=== PATIENT | female | born 1985 | race Caucasian/White ===

== ENCOUNTER → 2017-08-27 | Outpatient (CLI) | payer BC ==
--- NOTE | 2017-08-27 13:45 | US ---
EXAMINATION TYPE: US transvaginal DATE OF EXAM: 08/27/2017 COMPARISON: NONE CLINICAL HISTORY: N91.5 Oligomenorrhea; patient stated had last menses December 2016; G0; not taking any medication TECHNIQUE: Transvaginal (TV) per order. Date of LMP: December 2016 EXAM MEASUREMENTS: Uterus: 6.4 x 2.9 x 2.6 cm Endometrial Stripe: 0.3 cm Right Ovary: 4.4 x 2.8 x 2.5 cm Left Ovary: 3.2 x 2.9 x 2.3 cm 1. Uterus: Anteverted; small Nabothian Cyst in cervix =0.5 x 0.4 x 0.3cm 2. Endometrium: appears wnl and unable to correlate thickness with LMP December 2016 3. Right Ovary: multiple small follicles noted in periphery 4. Left Ovary: multiple small follicles area also noted Spectral, color and waveform doppler imaging shows good arterial and venous flow within the ovaries ; . 5. Bilateral Adnexa: wnl 6. Posterior cul-de-sac: wnl Anteverted heterogeneous uterus with small nabothian cysts in the cervix. No suspicious thickening of endometrial stripe. No free fluid in pelvis. Both ovaries are identified with scattered small peripheral follicles. No suspicious extraovarian adn exal masses are seen. IMPRESSION: No suspicious finding is seen to account for patient's symptoms.
== END ==
LOC: RADUSWWP 12:50
PROVIDERS: ATTEND Internal Medicine
DX: N91.5 Oligomenorrhea, unspecified (principal)
CPT/HCPCS: 76830

== ENCOUNTER 2019-04-17 18:11 | Emergency (ER) | payer BC ==
[2019-04-17 18:25] VITALS: RESP 16
[2019-04-17] MEDS ORDERED: SODIUM CHLORIDE 0.9% 1,000 ML IV ONE (18:44)
--- NOTE | 2019-04-17 18:47 | ED ---
General Adult HPI - General Chief complaint: Abdominal Pain Stated complaint: 6wks preg, bleeding Time Seen by Provider: 04/17/19 18:23 Source: patient Mode of arrival: ambulatory Limitations: no limitations - History of Present Illness Initial comments: 34-year-old female patient presents to the emergency department today for evaluation of vaginal bleeding. Patient states that she found out about a week ago that she was . Patient states that she started having light spotting this morning and it has become gradually heavier throughout the day. Patient states she does not wear panty liner but she has not soaked through. States she did have one small blood clot this morning but has passed no further clots. Patient states she is having some mild suprapubic cramping. She denies any abnormal vaginal bleeding or discharge. States that she did treat a yeast infection with [id number] Monistat couple of weeks ago, states all sympt oms have resolved. She denies any hematuria, dysuria, urinary frequency, urinary urgency. Denies any fever or chills. Patient has history of PCOS but denies any other medical problems. This is her first . Patient denies any recent rash, fever, chills, shortness breath, chest pain, nausea, vomiting, diarrhea, constipation, back pain, numbness, tingling, dizziness, weakness, hematuria, dysuria, urinary urgency, urinary frequency, headache, visual changes, or any other complaints. - Related Data Allergies Allergy/AdvReac Type Severity Reaction Status Date / Time No Known Allergies Allergy Verified 04/17/19 18:25 Review of Systems ROS Statement: Those systems with pertinent positive or pertinent negative responses have been documented in the HPI. ROS Other: All systems not noted in ROS Statement are negative. Past Medical History Past Medical History: Cancer Additional Past Medical History / Comment(s): breast cancer, polycystic ovarian disease History of Any Multi-Drug Resistant Organisms: None Reported Additional Past Surgical History / Comment(s): double masectomy, gastric sleeve Past Psychological History: No Psychological Hx Reported Smoking Status: Never smoker Past Alcohol Use History: None Reported Past Drug Use History: None Reported General Exam Limitations: no limitations General appearance: alert, in no apparent distress, other (Physical well- developed, well-nourished adult female patient in no acute distress. Vital signs upon presentation are temperature 98.2F, pulse 99, respirations 16, blood pressure 139/100, pulse ox 100% on room air.) Eye exam: Present: normal appearance, PERRL, EOMI. Absent: scleral icterus, conjunctival injection, periorbital swelling ENT exam: Present: normal exam, normal oropharynx, mucous membranes moist Respiratory exam: Present: normal lung sounds bilaterally. Absent: respiratory distress, wheezes, rales, rhonchi, stridor Cardiovascular Exam: Present: regular rate, normal rhythm, normal heart sounds. Absent: systolic murmur, diastolic murmur, rubs, gallop, clicks GI/Abdominal exam: Present: soft, normal bowel sounds. Absent: distended, tenderness, guarding, rebound, rigid External exam: Present: normal external exam Speculum exam: Present: vaginal bleeding (Mild red vaginal bleeding. ), other (Cervix is closed). Absent: normal speculum exam Neurological exam: Present: alert, oriented X3, CN II-XII intact Psychiatric exam: Present: normal affect, normal mood Skin exam: Present: warm, dry, intact, normal color. Absent: rash Course Vital Signs 04/17/19 04/17/19 18:22 20:55 Temperature 98.2 F 98.0 F Pulse Rate 99 72 Respiratory 16 16 Rate Blood Pressure 139/100 117/79 O2 Sat by Pulse 100 99 Oximetry Medical Decision Making - Medical Decision Making 34-year-old female patient presents to the emergency department today for evalua tion of suprapubic cramping, vaginal bleeding. Patient did have a positive test and would be approximately 5-1/2 weeks for her last menstrual period. Physical examination reveals soft nontender abdomen. Pelvic exam was performed and did reveal mild vaginal bleeding, cervix is closed. Ultrasound was obtained and did show possible gestational sac with yolk sac within the endometrium. There is a large left ovarian cyst noted, thin wall. No evidence of ovarian torsion. HCG level is 23,800. I did discuss the case with on-call DIRECTOR GOVERNMENT Dr. Negron who believes this could be early vs spontaneous , but thinks ectopic is unlikely given level of HCG. patient is resting comfortably in bed at this time. We will discharge to return in 2 days to have repeat hCG level drawn. She is instructed to call DIRECTOR GOVERNMENT on Saturday to determine when her appointment date will be and requested sooner appointment. Return parameters were discussed in detail. She verbalizes understanding and agrees with this plan. - Lab Data Result diagrams: 04/17/19 18:51 04/17/19 18:51 Lab Results 04/17/19 04/17/19 04/17/19 Range/Units 18:45 18:51 18:51 WBC 8.9 (3.8-10.6) k/uL RBC 4.66 (3.80-5.40) m/uL Hgb 13.0 (11.4-16.0) gm/dL Hct 39.7 (34.0-46.0) % MCV 85.3 (80.0-100.0) fL MCH 27.9 (25.0-35.0) pg MCHC 32.8 (31.0-37.0) g/dL RDW 11.9 (11.5-15.5) % Plt Count 222 (150-450) k/uL Neutrophils % 64 % Lymphocytes % 28 % Monocytes % 5 % Eosinophils % 1 % Basophils % 0 % Neutrophils # 5.7 (1.3-7.7) k/uL Lymphocytes # 2.5 (1.0-4.8) k/uL Monocytes # 0.4 (0-1.0) k/uL Eosinophils # 0.1 (0-0.7) k/uL Basophils # 0.0 (0-0.2) k/uL Sodium (137-145) mmol/L Potassium (3.5-5.1) mmol/L Chloride (98-107) mmol/L Carbon Dioxide (22-30) mmol/L Anion Gap mmol/L BUN (7-17) mg/dL Creatinine (0.52-1.04) mg/dL Est GFR (CKD-EPI)AfAm (>60 ml/min/1.73 sqM) Est GFR (CKD-EPI)NonAf (>60 ml/min/1.73 sqM) Glucose (74-99) mg/dL Calcium (8.4-10.2) mg/dL Total Bilirubin (0.2-1.3) mg/dL AST (14-36) U/L ALT (4-34) U/L Alkaline Phosphatase (38-126) U/L Total Protein (6.3-8.2) g/dL Albumin (3.5-5.0) g/dL HCG, Quant mIU/mL Urine Color Yellow Urine Appearance Cloudy H (Clear) Urine pH 5.5 (5.0-8.0) Ur Specific [place] 1.026 (1.001-1.035) Urine Protein 1+ H (Negative) Urine Glucose (UA) Negative (Negative) Urine Ketones Negative (Negative) Urine Blood Large H (Negative) Urine Nitrite Negative (Negative) Urine Bilirubin Negative (Negative) Urine Urobilinogen <2.0 (<2.0) mg/dL Ur Leukocyte Esterase Negative (Negative) Urine RBC 12 H (0-5) /hpf Urine WBC 5 (0-5) /hpf Ur Squamous Epith Cells 1 (0-4) /hpf Urine Bacteria Rare H (None) /hpf Urine Mucus Occasional H (None) /hpf Blood Type O Positive Blood Type Recheck No Previous Record Bld Type Recheck Status [facility] ONLY 04/17/19 Range/Units 18:51 WBC (3.8-10.6) k/uL RBC (3.80-5.40) m/uL Hgb (11.4-16.0) gm/dL Hct (34.0-46.0) % MCV (80.0-100.0) fL MCH (25.0-35.0) pg MCHC (31.0-37.0) g/dL RDW (11.5-15.5) % Plt Count (150-450) k/uL Neutrophils % % Lymphocytes % % Monocytes % % Eosinophils % % Basophils % % Neutrophils # (1.3-7.7) k/uL Lymphocytes # (1.0-4.8) k/uL Monocytes # (0-1.0) k/uL Eosinophils # (0-0.7) k/uL Basophils # (0-0.2) k/uL Sodium 136 L (137-145) mmol/L Potassium 4.0 (3.5-5.1) mmol/L Chloride 101 (98-107) mmol/L Carbon Dioxide 20 L (22-30) mmol/L Anion Gap 15 mmol/L BUN 22 H (7-17) mg/dL Creatinine 0.89 (0.52-1.04) mg/dL Est GFR (CKD-EPI)AfAm >90 (>60 ml/min/1.73 sqM) Est GFR (CKD-EPI)NonAf 86 (>60 ml/min/1.73 sqM) Glucose 89 (74-99) mg/dL Calcium 9.6 (8.4-10.2) mg/dL Total Bilirubin 0.4 (0.2-1.3) mg/dL AST 23 (14-36) U/L ALT 7 (4-34) U/L Alkaline Phosphatase 55 (38-126) U/L Total Protein 8.3 H (6.3-8.2) g/dL Albumin 5.0 (3.5-5.0) g/dL HCG, Quant 79350.7 mIU/mL Urine Color Urine Appearance (Clear) Urine pH (5.0-8.0) Ur Specific [place] (1.001-1.035) Urine Protein (Negative) Urine Glucose (UA) (Negative) Urine Ketones (Negative) Urine Blood (Negative) Urine Nitrite (Negative) Urine Bilirubin (Negative) Urine Urobilinogen (<2.0) mg/dL Ur Leukocyte Esterase (Negative) Urine RBC (0-5) /hpf Urine WBC (0-5) /hpf Ur Squamous Epith Cells (0-4) /hpf Urine Bacteria (None) /hpf Urine Mucus (None) /hpf Blood Type Blood Type Recheck Bld Type Recheck Status - Radiology Data Radiology results: report reviewed Obstetrical ultrasound is obtained. Report was reviewed in its entirety. Impression by Dr. Rowland shows findings favor too early to visualize intrauterine however spontaneous abortions in the differential and ectopic is not entirely excluded. Serum beta hCG and ultrasound follow-up is advised. Reading through the report there showed central endometrium possible gastritis gestational sac measuring 2.0 x 0.9 x 1.9 cm there is a round peripheral hyperechoic 2 mm area which could be the yolk sac. There is also 5.8 simple-appearing thin walled cyst on the left ovary. Disposition Clinical Impression: Threatened miscarriage, Left ovarian cyst, Vaginal bleeding during Disposition: HOME SELF-CARE Condition: Good Instructions (If sedation given, give patient instructions): Threatened Miscarriage (ED), (ED), Ovarian Cyst (ED) Additional Instructions: Rest. Increase fluids. Maintain pelvic rest until follow-up with DIRECTOR GOVERNMENT. Call [facility] DIRECTOR GOVERNMENT on Saturday to see about your appointment. Have repeat labs performed in 2 days. Return to the emergency department immediately for any new, worsening, or concerning symptoms. Is patient prescribed a controlled substance at d/c from ED?: No Referrals: Breezy Johnson MD [Primary Care Provider] - 1-2 days Shala Allred MD [STAFF PHYSICIAN] - 1-2 days Time of Disposition: 20:54
[2019-04-17 19:06] LABS: Basophils % (A) 0 %; Eosinophils # (A) 0.1 k/uL (0-0.7); Eosinophils % (A) 1 %; HCT 39.7 % (34.0-46.0); Lymphocytes # (A) 2.5 k/uL (1.0-4.8); Lymphocytes % (A) 28 %; MCH 27.9 pg (25.0-35.0); MCHC 32.8 g/dL (31.0-37.0); MCV 85.3 fL (80.0-100.0); Mean Platelet Volume 7.6; Monocytes # (A) 0.4 k/uL (0-1.0); Monocytes % (A) 5 %; Neutrophils # (A) 5.7 k/uL (1.3-7.7); Neutrophils % (A) 64 %; Platelet Count 222 k/uL (150-450); RBC 4.66 m/uL (3.80-5.40); RDW 11.9 % (11.5-15.5); WBC 8.9 k/uL (3.8-10.6)
[2019-04-17 19:07] LABS: Appearance,Urine Cloudy (Clear); Bacteria,Urine Rare /hpf; Bilirubin,Urine Negative (Negative); Blood,Urine Large (Negative); Color,Urine Yellow; Glucose,Urine (UA) Negative (Negative); Ketones,Urine Negative (Negative); Leukocyte Esterase,Urine Negative (Negative); Mucus,Urine Occasional /hpf; Nitrite,Urine Negative (Negative); PH, Urine 5.5 (5.0-8.0); Protein,Urine 1+ (Negative); RBC,Urine 12 /hpf (0-5); Specific Gravity,Urine 1.026 (1.001-1.035); Squamous Epithelial Cell,Urine 1 /hpf (0-4); Urobilinogen,Urine <2.0 mg/dL (<2.0); WBC,Urine 5 /hpf (0-5)
[2019-04-17 19:14] LABS: ALT 7 U/L (4-34); AST 23 U/L (14-36); African American GFR (CKD) >90 (>60 ml/min/1.73 sqM); Alkaline Phosphatase 55 U/L (38-126); Anion Gap 15 mmol/L; Blood Urea Nitrogen 22 mg/dL (7-17); Calcium 9.6 mg/dL (8.4-10.2); Carbon Dioxide 20 mmol/L (22-30); Chloride 101 mmol/L (98-107); Glucose 89 mg/dL (74-99); Non-African American GFR(CKD) 86 (>60 ml/min/1.73 sqM); Sodium 136 mmol/L (137-145); Total Bilirubin 0.4 mg/dL (0.2-1.3); Total Protein 8.3 g/dL (6.3-8.2)
[2019-04-17 19:58] LABS: HCG,Quantitative Serum 24884.7 mIU/mL
--- NOTE | 2019-04-17 20:03 | US ---
EXAMINATION TYPE: Transabdominal DATE OF EXAM: 04/17/2019 7:13 PM COMPARISON: NONE CLINICAL HISTORY: Bleeding, 5.5 weeks . Pt states vaginal bleeding that started today, moderate in fl ow EXAM PERFORMED: Transabdominal (TA) EXAM MEASUREMENTS: GESTATIONAL AGE / DATING Physician Established: Not yet established Dates by LMP: (6 weeks/0 days) EDC: 12/11/2019 Dates by First Scan: No prior Dates by Current Scan for: (5 weeks/6 days) EDC: 12/12/2019 MATERNAL ANATOMY Uterus: 6.9 x 4.4 x 5.2 cm Right Ovary: 3.3 x 2.0 x 2.7 cm Left Ovary: 7.2 x 6.1 x 6.4 cm Post CDS / Adnexa: wnl Presence of free fluid: No Presence of corpus luteal cyst: Large left ovarian cyst= 5.8 x 5.2 x 5.3 cm, blood flow is visualized at peripheral ovarian tissue Presence of subchorionic bleed: No GESTATION / SURVEY CRL: Not visualized on today's scan, too early MSD: 1.6 cm (5 weeks/6 days) Yolk Sac (normal less than 6mm): 2mm Date of LMP: 03/06/2019 Beta HcG (if available): Not available at this time Heterogeneous anteverted uterus. Central endometrium shows oval anechoic area measuring 2.0 x 0.9 x 1 .9 cm. Within this there is round peripheral hyperechoic 2 mm area. Findings likely reflect early ges tational sac and yolk sac. pole not clearly identified. No free fluid in pelvis. Both ovaries seen. Left ovary enlarged due to 5.8 cm simple appearing thin-walled cyst. If reflects a corpus luteal cyst it is large in size. No suspicious extra ovarian adnexal masses present. IMPRESSION: As above. Findings favor too early to visualize intrauterine however spontaneou s is in the differential and ectopic is not entirely excluded. Serial beta hCG and ultrasound follow-up advised.
[2019-04-17 20:56] VITALS: BP 117/79; PULSE 72; TEMP 98
== END 2019-04-17 21:14 | disposition home or self-care (01) ==
LOC: EC 18:11
DX: O20.0 Threatened abortion (principal); O34.81 Maternal care for other abnormalities of pelvic organs, first trimester; N83.202 Unspecified ovarian cyst, left side; Z85.3 Personal history of malignant neoplasm of breast; Z87.42 Personal history of other diseases of the female genital tract; Z90.13 Acquired absence of bilateral breasts and nipples; Z98.84 Bariatric surgery status; Z3A.01 Less than 8 weeks gestation of pregnancy
CPT/HCPCS: 36415; 76801; 80053; 81001; 84702; 85025; 86900; 86901; 96360; 99284

== ENCOUNTER → 2019-04-20 | Outpatient (CLI) | payer BC | END | disposition home or self-care (01) | LOC: LABWHC1 09:32 | PROVIDERS: ATTEND Nurse Practitioner | DX: O20.0 Threatened abortion (principal) | CPT/HCPCS: 36415; 84702 ==

== ENCOUNTER → 2019-04-21 | Outpatient (CLI) | payer BC ==
--- NOTE | 2019-04-21 09:38 | US ---
EXAMINATION TYPE: Transabdominal DATE OF EXAM: 04/21/2019 9:27 AM COMPARISON: NONE CLINICAL HISTORY: O46.91 BLEEDING/SPOTTING. spotting, seen in our EC 4 days prior, cramping, early OB , G1 EXAM PERFORMED: OBTA/OBTV EXAM MEASUREMENTS: GESTATIONAL AGE / DATING Physician Established: Not yet established Dates by LMP: (6 weeks/4 days) EDC: 12/11/2019 Dates by First Scan: (6 weeks/3 days) EDC: 12/12/2019 Dates by Current Scan for: (6 weeks/3 days) EDC: 12/12/2019 MATERNAL ANATOMY Uterus: 7.8 x 5.2 x 5.2cm Right Ovary: 3.0 x 2.8 x 1.9cm Left Ovary: 4.4 x 6.2 x 4.8cm, large simple appearing cyst = 6.3cm Post CDS / Adnexa: wnl Presence of free fluid: no Presence of corpus luteal cyst: not seen with certainty Presence of subchorionic bleed: no GESTATION / SURVEY CRL: 0.6 (6 weeks/3 days) MSD: wnl Yolk Sac (normal less than 6mm): 0.3cm Heart Rate: 127 bpm Rhythm: Normal IUP: Viable IUP Date of LMP: 03/06/2019 Beta HcG (if available): not available *tech impression to office and sending patient back There is a large cyst on the left ovary IMPRESSION: 1. Single intrauterine gestation estimated at 6 weeks 3 days gestation based on crown-rump length. Ca rdiac activity measures 127 bpm. 2. Large left ovarian cyst
== END | disposition home or self-care (01) ==
LOC: RADUSWWP 08:58
PROVIDERS: ATTEND Obstetrics & Gynecology Obstetrics
DX: O34.81 Maternal care for other abnormalities of pelvic organs, first trimester (principal); N83.202 Unspecified ovarian cyst, left side; Z3A.01 Less than 8 weeks gestation of pregnancy
CPT/HCPCS: 76801; 76817

== ENCOUNTER 2019-12-05 09:45 | Inpatient (IN) | payer BC ==
[2019-12-05] MEDS ORDERED: TERBUTALINE 1 MG/ML VIAL SQ PRN (10:36)
[2019-12-05] MEDS ORDERED: CARBOPROST TROMETHAMINE 250 MCG/ML 1 ML AMP IM PRN (10:36)
[2019-12-05] MEDS ORDERED: OXYTOCIN 10 UNIT/ML 1 ML VIAL IM PRN (10:36)
[2019-12-05] MEDS ORDERED: LIDOCAINE 0.5% (PF) 5 MG/ML (50 ML SDV) SQ PRN (10:36)
[2019-12-05] MEDS ORDERED: METHYLERGONOVINE 0.2 MG/ML 1 ML AMP IM PRN (10:36)
[2019-12-05] MEDS ORDERED: LACTATED RINGERS 1,000 ML IV SCH (10:45)
[2019-12-05 10:50] LABS: Basophils % (A) 0 %; Eosinophils # (A) 0.1 k/uL (0-0.7); Eosinophils % (A) 1 %; HCT 38.9 % (34.0-46.0); HGB 12.6 gm/dL (11.4-16.0); Lymphocytes # (A) 2.3 k/uL (1.0-4.8); Lymphocytes % (A) 16 %; MCH 30.2 pg (25.0-35.0); MCHC 32.3 g/dL (31.0-37.0); MCV 93.5 fL (80.0-100.0); Mean Platelet Volume 7.8; Monocytes # (A) 0.7 k/uL (0-1.0); Monocytes % (A) 5 %; Neutrophils # (A) 11.5 k/uL (1.3-7.7); Neutrophils % (A) 78 %; Platelet Count 214 k/uL (150-450); RBC 4.16 m/uL (3.80-5.40); RDW 13.4 % (11.5-15.5); WBC 14.7 k/uL (3.8-10.6)
--- NOTE | 2019-12-05 11:47 | P.HPOB ---
History of Present Illness H&P Date: 12/05/19 Chief Complaint: Rupture of membranes This is a 34 year old 1 para 0 woman with an estimated due date of 12/11/2019 who presented at 39 weeks gestation. 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 She woke up and hurting a pop and a gush of fluids. This is at approximately 730 AM. She had no real regular contractions initially but then started having some cramping and decided to come to the hospital. She denies vaginal bleeding at that time. On presentation to labor and delivery triage at approximately 945. She was found to be grossly ruptured with meconium stained fluid and was 7-8 cm dilated. During her brief evaluation in triage heart tones were reassuring. The patient complains of only mild cramping and some pelvic pressure. She was transported to a labor suite and was re-hooked up to the heart rate monitor. At that point she was found to be bradycardic in the 70-80 bpm. This initially did improve from baseline but after another couple of minutes she had a prolonged bradycardic event. The patient was at that time found to be completely dilated and +2 station. Coinciding with this transfer from triage to a labor room I initiated a stat section for other events on the unit. I was aware of the patient's triage exam and heart rate tracing which was reassuring. I initiated a section and several minutes into the procedure was notified of the bradycardia occurring in this patient's labor room. Dr. Vaz arrived on the unit as she had been previously called to assist with the section and was directed immediately to attendants to this situation instead. Please see her delivery summary notes for events surrounding delivery. In summary the patient was completely dilated and +2 station with bradycardia. She was an effective pusher and Dr. Vaz was able to perform a vacuum assisted vaginal delivery over a midline episiotomy. Apgars were 7 at 1 minute and 8 at 5 minutes. The was taken to the nursery for further evaluation secondary to events of delivery and thick meconium-stained fluid. Weight was 6 lbs. 8 oz. and 2940 g. Placenta was sent to 4 pathology evaluation. The patient's record is not available at this time however the patient reports an uncomplicated . She had an ovarian cyst in the first trimester that did resolve later in the . She had an ultrasound 2 weeks prior to delivery for suspected SGA which was normal per her report. Her past medical history is significant for gastric sleeve bariatric procedure 2 years ago with 110 pound weight loss. She also has a remote history of bilateral mastectomy for breast malignancy at age 22. This is her first . Review of Systems All systems: negative Past Medical History Past Medical History: Cancer Additional Past Medical History / Comment(s): breast cancer, polycystic ovarian disease History of Any Multi-Drug Resistant Organisms: None Reported Additional Past Surgical History / Comment(s): double masectomy, gastric sleeve Past Anesthesia/Blood Transfusion Reactions: No Reported Reaction Past Psychological History: No Psychological Hx Reported Smoking Status: Former smoker Past Alcohol Use History: None Reported Past Drug Use History: None Reported - Past Family History Mother History Unknown: Yes Additional Family Medical History / Comment(s): skin cancer Medications and Allergies Home Medications Medication Instructions Recorded Confirmed Type Pedi Multivit No.25/Folic Acid 300 mcg PO DAILY 12/05/19 12/05/19 History [Flintstones Multivit Chew Tab] Allergies Allergy/AdvReac Type Severity Reaction Status Date / Time No Known Allergies Allergy Verified 04/17/19 18:25 Exam Vital Signs Temp Pulse Resp BP 12/05/19 11:24 52 L 14 134/74 12/05/19 11:17 52 L 16 163/84 12/05/19 11:02 42 L 16 150/70 12/05/19 10:47 48 L 16 159/75 12/05/19 10:32 97.8 F 52 L 16 140/78 12/05/19 10:31 97.2 F L 51 L 24 173/83 Intake and Output 12/04/19 12/05/19 12/05/19 22:59 06:59 14:59 Other: Weight 79.832 kg Admit the patient post delivery and she has resting comfortably in bed, no further physical exam is performed at this moment Results Result Diagrams: 12/05/19 10:00 Abnormal Lab Results - Last 24 Hours (Table) 12/05/19 Range/Units 10:00 WBC 14.7 H (3.8-10.6) k/uL Neutrophils # 11.5 H (1.3-7.7) k/uL Assessment and Plan (1) Spontaneous rupture of membranes Current Visit: Yes Status: Acute Code(s): [id number] - SNOMED Code(s): 282909765 (2) Term Current Visit: Yes Status: Acute Code(s): Z34.90 - ENCNTR FOR SUPRVSN OF NORMAL , UNSP, UNSP TRIMESTER SNOMED Code(s): 23896196 (3) Meconium in amniotic fluid Current Visit: Yes Status: Acute Code(s): P96.83 - MECONIUM STAINING SNOMED Code(s): 5134859 (4) Non-reassuring heart rate or rhythm affecting management of fetus Current Visit: Yes Status: Acute Code(s): [id number] - SNOMED Code(s): 954730835 Plan: 34-year-old 1 now para 1 woman who presented at 39-0/7 weeks gestation in advanced active labor with meconium-stained fluid following rupture of membranes at home. She had a significant bradycardic event in the second stage and was delivered by vacuum assistance. Events of labor and delivery were reviewed in detail with the family and patient. All questions were answered. I defer to Dr. Vaz's delivery summary for details and appreciate her timely and competent assistance in this sequence of events.
[2019-12-05] MEDS ORDERED: SIMETHICONE 80 MG CHEWABLE PO PRN (12:15)
[2019-12-05] MEDS ORDERED: BENZOCAINE/MENTHOL SPRAY 1 GM/SPRAY AEROSOL TOPICAL PRN (12:15)
[2019-12-05] MEDS ORDERED: OXYTOCIN 20 UNITS/1000 ML NS 1,000 ML IV SCH (12:15)
[2019-12-05] MEDS ORDERED: HYDROCORTISONE 2.5% RECTAL CREAM 30 GM TUBE RECTAL PRN (12:15)
[2019-12-05] MEDS ORDERED: diphenhydrAMINE 25 MG CAP PO PRN (12:15)
[2019-12-05] MEDS ORDERED: diphenhydrAMINE 50 MG CAP PO PRN (12:15)
[2019-12-05] MEDS ORDERED: ACETAMINOPHEN TAB 325 MG TAB PO PRN (12:15)
[2019-12-05] MEDS ORDERED: diphenhydrAMINE 50 MG/ML 1 ML VIAL IVP PRN ×2 (12:15)
[2019-12-05] MEDS ORDERED: ZOLPIDEM 5 MG TAB PO PRN (12:15)
[2019-12-05] MEDS: SENNOSIDES-DOCUSATE SODIUM 1 EACH TAB PO SCH (20:44)
[2019-12-06] MEDS: IBUPROFEN 600 MG TAB PO PRN ×2 (06:15→21:17)
[2019-12-06 07:00] LABS: Basophils % (A) 0 %; Eosinophils # (A) 0.1 k/uL (0-0.7); Eosinophils % (A) 1 %; HCT 32.5 % (34.0-46.0); HGB 10.7 gm/dL (11.4-16.0); Lymphocytes # (A) 2.6 k/uL (1.0-4.8); Lymphocytes % (A) 22 %; MCH 30.5 pg (25.0-35.0); MCHC 33.1 g/dL (31.0-37.0); MCV 92.3 fL (80.0-100.0); Mean Platelet Volume 7.7; Monocytes # (A) 0.5 k/uL (0-1.0); Monocytes % (A) 4 %; Neutrophils # (A) 8.3 k/uL (1.3-7.7); Neutrophils % (A) 72 %; Platelet Count 179 k/uL (150-450); RBC 3.52 m/uL (3.80-5.40); RDW 13.2 % (11.5-15.5); WBC 11.6 k/uL (3.8-10.6)
[2019-12-06] MEDS: SENNOSIDES-DOCUSATE SODIUM 1 EACH TAB PO SCH ×2 (08:55→21:19)
--- NOTE | 2019-12-06 09:34 | P.PROBDLV ---
Vaginal Delivery Note - . Vaginal Delivery Note: Patient entered the Labor and delivery unit and was directed to the L&D suite where Irene Puga had been admitted. I Was actually called in for a stat section but redirect to this room upon presentation to the unit. Report from the nurse was that this 34-year-old at 39 weeks presented to triage complaining of spontaneous rupture membranes at 7:30 AM, with thick meconium. The heart tones originally been category 1 but when she got to the L&D suite and was hooked up to the monitor again, heart tones were went to the 70s to 80s. Cervix had been checked and was told to me to be 9 cm dilated, 100 percent effaced, and +1 station. When I entered the room she was in knee- chest position with heart tones were in the 70s for the last 3 minutes. heart tones did go back up to 100 when she was in knee-chest but went back down to the 80s soon after. Oxygen mask was on her face and IV fluids running. I introduced myself to the patient and repositioned her in the lithotomy position. The cervix was completely dilated and +2 station at 10:20 AM. I had the patient start to push and after a few pushes with instruction she was pushing effectively. head position was confirmed and episiotomy was made. I briefly discussed vacuum delivery including risks with the father of the baby and the patient. The vacuum was placed with 2 pulls and one pop-off infant's head delivered atraumatically anterior shoulder delivered gentle downward guidance for by posterior shoulder and rest of body. Nose and mouth bulb suctioned as the baby spontaneously cried. Cord was then clamped and cut and infant handed off to the waiting nurses and mosquito sprayer who was in the room. Apgars were 7 at 1 minute and 8 at 5 minutes. Weight of the baby 6 lbs. 8 oz. Placenta delivered spontaneously, intact with three-vessel cord at 10:20 AM. V agina, cervix, perineum inspected. Midline episiotomy was repaired with 3-0 Vicryl. Estimated blood loss 400 mL. Mother is in stable condition and the infant is being evaluated by pediatrics.
--- NOTE | 2019-12-06 11:33 | P.DS ---
Providers Date of admission: 12/05/19 10:00 Expected date of discharge: 12/06/19 Attending physician: Raquel Ross Primary care physician: Stated None - Discharge Diagnosis(es) (1) Spontaneous rupture of membranes Current Visit: Yes Status: Acute (2) Term Current Visit: Yes Status: Acute (3) Meconium in amniotic fluid Current Visit: Yes Status: Acute (4) Non-reassuring heart rate or rhythm affecting management of fetus Current Visit: Yes Status: Acute (5) Vacuum-assisted vaginal delivery Current Visit: Yes Status: Acute (6) Perineal laceration with delivery, second degree Current Visit: Yes Status: Acute Hospital Course: This is a 34-year-old 1 now para 1 woman who presented at term with spontaneous rupture of membranes at home. She experienced some mild cramping and discomfort and had spontaneous rupture at approximately 7:30 AM. The patient presented to labor and delivery triage at approximately 9:30 to 9:45 AM. At that time she was found to be 7-8 cm dilated and grossly ruptured with meconium-stained fluid. She was transferred from triage to the delivery suite at which time she was found to have a significant bradycardia to the 70-80 bpm. Of note heart tones were category 1 upon initial presentation in labor and delivery triage. She was found to be at complete cervical dilation and was an effective pusher. She went on to have a vacuum-assisted vaginal delivery of a liveborn male infant over a secondary perineal laceration. Please see the delivery summary for complete details. The patient's course was unremarkable. The transiently went to the special care nursery but was released back to the room after several hours. By the morning of day #1 patient was feeling well with decreasing lochia and adequate pain control. The was being bottle-fed and doing well. Vital signs were stable. Her perineum was well healing. After discussion the patient indicated strongly that she would like discharge home. The patient was therefore discharged home with routine instructions for care and follow-up pending evaluation and discharge from the loss prevention analyst. Patient Condition at Discharge: Good Plan - Discharge Summary Discharge Rx Participant: No New Discharge Prescriptions: No Action Pedi Multivit No.25/Folic Acid [Flintstones Multivit Chew Tab] 300 mcg PO DAILY Discharge Medication List Pedi Multivit No.25/Folic Acid [Flintstones Multivit Chew Tab] 300 mcg PO DAILY 12/05/19 [History] Follow up Appointment(s)/Referral(s): Raquel Ross DO [Doctor of Osteopathic Medicine] - 4 Weeks Activity/Diet/Wound Care/Special Instructions: Follow-up in the office in 6 weeks . Call with any concerning signs or symptoms including heavy vaginal bleeding, severe abdominal pain, fever greater than 101, swelling or redness of the lower extremities, foul vaginal discharge, or signs of depression. Nothing in the vagina for 6 weeks after delivery, specifically no intercourse. May use [id number] ibuprofen and/or Tylenol as needed for pain. Discharge Disposition: HOME SELF-CARE
[2019-12-07] VITALS: RESP 18
[2019-12-07] MEDS: IBUPROFEN 600 MG TAB PO PRN (06:40)
[2019-12-07 08:47] VITALS: BP 136/73; PULSE 63; TEMP 98.6
[2019-12-07] MEDS: SENNOSIDES-DOCUSATE SODIUM 1 EACH TAB PO SCH (08:56)
--- NOTE | 2019-12-07 09:06 | P.PNOBGVD ---
Subjective - Subjective Principal diagnosis: PPD 1 Interval history: Patient is doing well . She is postop day #2 from a vacuum- assisted vaginal delivery secondary to nonreassuring heart tones, thick meconium. Patient is ambulating and voiding without difficulty. She is tolerating a regular diet without nausea or vomiting. She states her pain is well-controlled. She is anxious for discharge home. Patient reports: Reports appetite normal, Reports voiding normally, Reports pain well controlled, Reports ambulating normally Patterson: doing well, bottle feeding Objective - Latest Vital Signs Latest vital signs: Vital Signs Temp Pulse Resp BP Pulse Ox 12/07/19 08:00 98.6 F 63 18 136/73 99 12/06/19 23:56 98.0 F 60 18 117/70 98 12/06/19 16:00 98.1 F 67 17 118/70 - Exam Extremities: Present: normal, edema Abdomen: Present: normal appearance Uterus: Present: normal, firm Assessment and Plan (1) Meconium in amniotic fluid Current Visit: Yes Status: Acute Code(s): P96.83 - MECONIUM STAINING SNOMED Code(s): 5847616 (2) Non-reassuring heart rate or rhythm affecting management of fetus Current Visit: Yes Status: Acute Code(s): YWG3840 - SNOMED Code(s): 24 3176863 (3) Perineal laceration with delivery, second degree Current Visit: Yes Status: Acute Code(s): O70.1 - SECOND DEGREE PERINEAL LACERATION DURING DELIVERY SNOMED Code(s): 1566500 (4) Spontaneous rupture of membranes Current Visit: Yes Status: Acute Code(s): EPU0884 - SNOMED Code(s): 451381692 (5) Term Current Visit: Yes Status: Acute Code(s): Z34.90 - ENCNTR FOR SUPRVSN OF NORMAL , UNSP, UNSP TRIMESTER SNOMED Code(s): 20557100 (6) Vacuum-assisted vaginal delivery Current Visit: Yes Status: Acute Code(s): Z37.9 - OUTCOME OF DELIVERY, UNSPECIFIED SNOMED Code(s): 10116687593176943 Plan: We'll plan discharge home this morning, [id number] ibuprofen as needed for pain. Patient is instructed to follow up with myself in 4 weeks.
== END 2019-12-07 11:00 | disposition home or self-care (01) | DRG 807 ==
LOC: FBPOP 09:45 → 4FBP 10:00
PROVIDERS: ADMIT Obstetrics & Gynecology; ATTEND Obstetrics & Gynecology Obstetrics
PROC: 0W8NXZZ Division of Female Perineum, External Approach (ICD-10-PCS; principal; 2019-12-05)
PROC: 10D07Z6 Extraction of Products of Conception, Vacuum, Via Natural or Artificial Opening (ICD-10-PCS; principal; 2019-12-05)
PROC: 0KQM0ZZ Repair Perineum Muscle, Open Approach (ICD-10-PCS; principal; 2019-12-05)
DX: O76 Abnormality in fetal heart rate and rhythm complicating labor and delivery (principal); Z37.0 Single live birth; O77.0 Labor and delivery complicated by meconium in amniotic fluid; O70.1 Second degree perineal laceration during delivery; Z3A.39 39 weeks gestation of pregnancy; Z79.899 Other long term (current) drug therapy; Z90.13 Acquired absence of bilateral breasts and nipples; Z85.3 Personal history of malignant neoplasm of breast; Z98.84 Bariatric surgery status; Z87.42 Personal history of other diseases of the female genital tract; Z87.891 Personal history of nicotine dependence; Z80.8 Family history of malignant neoplasm of other organs or systems
CPT/HCPCS: 84112; 85025; 86850; 86900; 86901; 88307; 99213

== ENCOUNTER → 2020-07-01 | Outpatient (CLI) | payer BC ==
--- NOTE | 2020-07-01 12:07 | USB ---
Reason for exam: clinical finding. History: Implants, 2007. Mastectomy of both breasts, 2007. Physical Findings: Nurse Summary: 0.5cm palpable movable (nurse dw). US Breast LT Left complete breast ultrasound includes all four quadrants, the retroareolar region and axilla. Finding demonstrates a 0.6 x 0.3 x 0.8cm oval, hypoechoic lesion at 4 o'clock for which a biopsy is recommended. These results were verbally communicated with the patient and result sheet given to the patient on 07/01/20. ASSESSMENT: Suspicious, BI-RAD 4 RECOMMENDATION: Ultrasound core biopsy of the left breast. Called Dr. Ross's office with mammographic findings and has scheduled an appointment for the patient for 07/06/20 at 10:[address] Scott. PRELIMINARY REPORT CALLED AND FAXED TO DR. SCOTT ON 07/01/20.
== END | disposition home or self-care (01) ==
LOC: RADUSWWP 09:09
PROVIDERS: ATTEND Obstetrics & Gynecology Obstetrics
DX: R92.2 Inconclusive mammogram (principal)

== ENCOUNTER 2022-08-28 18:00 | Inpatient (IN) | payer BC ==
[2022-08-28] MEDS ORDERED: CARBOPROST TROMETHAMINE 250 MCG/ML 1 ML AMP IM PRN (18:22)
[2022-08-28] MEDS ORDERED: METHYLERGONOVINE 0.2 MG/ML 1 ML AMP IM PRN (18:22)
[2022-08-28] MEDS ORDERED: miSOPROStoL 200 MCG TAB PO PRN (18:22)
[2022-08-28] MEDS ORDERED: LIDOCAINE 0.5% (PF) 5 MG/ML (50 ML SDV) SQ PRN (18:22)
[2022-08-28] MEDS ORDERED: TRANEXAMIC 1,000 MG/100ML-NACL 1,000 MG in EMPTY BAG 1 BAG IV PRN (18:22)
[2022-08-28] MEDS ORDERED: TERBUTALINE 1 MG/ML VIAL SQ PRN (18:22)
[2022-08-28] MEDS ORDERED: OXYTOCIN 10 UNIT/ML 1 ML VIAL IM PRN (18:22)
[2022-08-28] MEDS: LACTATED RINGERS 1,000 ML IV SCH (18:29)
[2022-08-28] MEDS ORDERED: OXYTOCIN 30 UNITS/500 ML NS 30 UNIT in SALINE 1 500ML.BAG IV SCH (18:30)
[2022-08-28 18:40] LABS: Basophils % (A) 0 %; Eosinophils # (A) 0.1 k/uL (0-0.7); Eosinophils % (A) 1 %; HCT 30.6 % (34.0-46.0); HGB 9.4 gm/dL (11.4-16.0); Hypochromasia Marked; Lymphocytes # (A) 2.1 k/uL (1.0-4.8); Lymphocytes % (A) 22 %; MCHC 30.8 g/dL (31.0-37.0); MCV 74.6 fL (80.0-100.0); Mean Platelet Volume 9.4; Microcytosis Slight; Monocytes # (A) 0.5 k/uL (0-1.0); Monocytes % (A) 5 %; Neutrophils # (A) 6.6 k/uL (1.3-7.7); Neutrophils % (A) 70 %; Platelet Count 222 k/uL (150-450); Poikilocytosis Slight; RDW 15.6 % (11.5-15.5); WBC 9.4 k/uL (3.8-10.6)
[2022-08-28] MEDS ORDERED: diphenhydrAMINE 50 MG CAP PO PRN (20:49)
[2022-08-28] MEDS ORDERED: LANOLIN CREAM 5 GM TUBE TOPICAL PRN (20:49)
[2022-08-28] MEDS ORDERED: diphenhydrAMINE 50 MG/ML 1 ML VIAL IVP PRN ×2 (20:49)
[2022-08-28] MEDS ORDERED: HYDROCORTISONE 2.5% RECTAL CREAM 30 GM TUBE RECTAL PRN (20:49)
[2022-08-28] MEDS ORDERED: ZOLPIDEM 5 MG TAB PO PRN (20:49)
[2022-08-28] MEDS ORDERED: diphenhydrAMINE 25 MG CAP PO PRN (20:49)
[2022-08-28] MEDS ORDERED: SIMETHICONE 80 MG CHEWABLE PO PRN (20:49)
[2022-08-28] MEDS ORDERED: BENZOCAINE/MENTHOL SPRAY 1 GM/SPRAY AEROSOL TOPICAL PRN (20:49)
[2022-08-28] MEDS: IBUPROFEN 600 MG TAB PO PRN (20:59)
[2022-08-28] MEDS: ACETAMINOPHEN TAB 325 MG TAB PO PRN (23:12)
--- NOTE | 2022-08-29 02:16 | P.HPOB ---
History of Present Illness H&P Date: 08/29/22 Chief Complaint: Labor,SROM 37 year old presented at 39 weeks 4 days in labor and with spontaneous rupture of membranes at 1745. Her cervix was 5-6 cm dilated, her percent effaced, and -1 station. She was quincy every 3-7 minutes. heart tones 135 with moderate variability and reactive. Review of Systems All systems: negative Constitutional: Denies chills, Denies fever Eyes: denies blurred vision, denies pain Ears, nose, mouth and throat: Denies headache, Denies sore throat Cardiovascular: Denies chest pain, Denies shortness of breath Respiratory: Denies cough Gastrointestinal: Denies abdominal pain, Denies diarrhea, Denies nausea, Denies vomiting Genitourinary: Denies dysuria, Denies hematuria Musculoskeletal: Denies myalgias Integumentary: Denies pruritus, Denies rash Neurological: Denies numbness, Denies weakness Psychiatric: Denies anxiety, Denies depression Endocrine: Denies fatigue, Denies weight change Past Medical History Past Medical History: Cancer Additional Past Medical History / Comment(s): 2008 breast cancer, double mastec jak, polycystic ovarian disease History of Any Multi-Drug Resistant Organisms: None Reported Additional Past Surgical History / Comment(s): double masectomy, gastric sleeve Past Anesthesia/Blood Transfusion Reactions: No Reported Reaction Past Psychological History: No Psychological Hx Reported Smoking Status: Former smoker Past Alcohol Use History: None Reported Past Drug Use History: None Reported - Past Family History Mother History Unknown: Yes Additional Family Medical History / Comment(s): skin cancer Father Additional Family Medical History / Comment(s): polycystic kidney disease Medications and Allergies Home Medications Medication Instructions Recorded Confirmed Type Pedi Multivit No.25/Folic Acid 300 mcg PO DAILY 12/05/19 08/28/22 History [Flintstones Multivit Chew Tab] Allergies Allergy/AdvReac Type Severity Reaction Status Date / Time No Known Allergies Allergy Verified 08/28/22 18:21 Exam Osteopathic Statement: *. No significant issues noted on an osteopathic structural exam other than those noted in the History and Physical/Consult. Vital Signs Temp Pulse Resp BP Pulse Ox 08/28/22 23:24 98.9 F 68 16 132/74 100 08/28/22 21:42 55 L 16 130/67 08/28/22 21:12 49 L 16 148/72 08/28/22 20:42 43 L 16 154/72 08/28/22 20:27 55 L 16 146/67 08/28/22 20:07 59 L 16 157/80 100 08/28/22 19:51 51 L 16 158/71 100 08/28/22 19:42 97.5 F L 70 16 130/67 100 08/28/22 18:30 97.7 F 63 16 143/73 100 Intake and Output 08/28/22 08/28/22 08/29/22 14:59 22:59 06:59 Output Total 502 Balance -502 Output: Estimated Blood Loss 300 Output, Quantitative 202 Blood Loss Other: # Voids 1 1 Weight 82.1 kg Heart: Regular rate and rhythm Lungs: Clear to auscultation bilaterally Abdomen: Soft, nontender Extremities: Negative Homans sign Results Result Diagrams: 08/28/22 18:23 Abnormal Lab Results - Last 24 Hours (Table) 08/28/22 Range/Units 18:23 Hgb 9.4 L (11.4-16.0) gm/dL Hct 30.6 L (34.0-46.0) % MCV 74.6 L (80.0-100.0) fL MCH 23.0 L (25.0-35.0) pg MCHC 30.8 L (31.0-37.0) g/dL RDW 15.6 H (11.5-15.5) % Assessment and Plan (1) Spontaneous rupture of membranes Current Visit: No Status: Acute Code(s): JAX7475 - SNOMED Code(s): 775051849 (2) Term Current Visit: No Status: Acute Code(s): Z34.90 - ENCNTR FOR SUPRVSN OF NORMAL , UNSP, UNSP TRIMESTER SNOMED Code(s): 93945789 (3) Normal labor Current Visit: Yes Status: Acute Code(s): O80 - ENCOUNTER FOR FULL-TERM UNCOMPLICATED DELIVERY; Z37.9 - OUTCOME OF DELIVERY, UNSPECIFIED SNOMED Code(s): 63463981 Plan: 1. Admit to family place 2. Expectant management 3. Anticipate normal vaginal delivery
--- NOTE | 2022-08-29 02:17 | P.PROBDLV ---
Vaginal Delivery Note - . Vaginal Delivery Note: 37 year old presented at 39 weeks 4 days in labor and with spontaneous rupture of membranes at 1745. Her cervix was 5-6 cm dilated, her percent effaced, and -1 station. She was quincy every 3-7 minutes. heart tones 135 with moderate variability and reactive. She dilated quite quickly to complete at 1909. She pushed, delivered a viable male over intact perineum at 1916. Head delivered OA, nuchal cord 1 easily reduced, anterior shoulder delivered gentle downward guidance followed by posterior shoulder and rest of body. Nose and mouth bulb suctioned, cord clamped and cut, infant placed mother's abdomen. Apgars 8, 9, weight 6 lbs. 14 oz. Placenta delivered spontaneously, intact with three-vessel cord at 1920. Vagina, cervix, perineum inspected. Bilateral labial lacerations were repaired with 3-0 Vicryl. Estimated blood loss 300 mL. Mother and baby in stable condition.
[2022-08-29] MEDS: IBUPROFEN 600 MG TAB PO PRN ×3 (04:07→20:47)
[2022-08-29 07:22] LABS: Basophils % (A) 0 %; Eosinophils % (A) 0 %; HCT 23.8 % (34.0-46.0); Hypochromasia Marked; Lymphocytes % (A) 16 %; MCH 22.3 pg (25.0-35.0); MCV 74.2 fL (80.0-100.0); Mean Platelet Volume 9.6; Microcytosis Slight; Monocytes # (A) 0.5 k/uL (0-1.0); Monocytes % (A) 4 %; Neutrophils # (A) 9.4 k/uL (1.3-7.7); Neutrophils % (A) 78 %; Platelet Count 183 k/uL (150-450); Poikilocytosis Slight; RDW 15.7 % (11.5-15.5); WBC 12.2 k/uL (3.8-10.6)
[2022-08-29 07:23] LABS: HGB 7.1 gm/dL (11.4-16.0)
[2022-08-29] MEDS ORDERED: SENNOSIDES-DOCUSATE SODIUM 1 EACH TAB PO SCH (08:00)
[2022-08-29] MEDS: ACETAMINOPHEN TAB 325 MG TAB PO PRN ×2 (08:51→16:38)
[2022-08-29 11:10] VITALS: RESP 18
[2022-08-29] MEDS: LACTATED RINGERS 1,000 ML IV SCH ×2 (11:21→11:22)
[2022-08-29 22:29] VITALS: BP 124/78; PULSE 76; TEMP 98
--- NOTE | 2022-08-30 10:32 | P.DS ---
Providers Date of admission: 08/28/22 18:12 Expected date of discharge: 08/29/22 Attending physician: Elen Vaz Primary care physician: Stated None - Discharge Diagnosis(es) (1) Spontaneous rupture of membranes Status: Resolved (2) Term Status: Acute (3) Normal labor Status: Resolved (4) Normal vaginal delivery Status: Acute Hospital Course: 37-year-old resented in active labor. She underwent a normal vaginal delivery. course was uneventful. She denies nausea, vomiting, chest pain, shortness of breath or calf pain. She'll be discharged home day #1 in stable condition to follow-up with me in 6 weeks. Patient Condition at Discharge: Good Plan - Discharge Summary New Discharge Prescriptions: New Ibuprofen [Motrin] 600 mg PO Q6HR PRN #30 tab PRN Reason: Mild Pain (Scale 1 To 3) No Action Pedi Multivit No.25/Folic Acid [Flintstones Multivit Chew Tab] 300 mcg PO DAILY Discharge Medication List Pedi Multivit No.25/Folic Acid [Flintstones Multivit Chew Tab] 300 mcg PO DAILY 12/05/19 [History] Ibuprofen [Motrin] 600 mg PO Q6HR PRN #30 tab 08/29/22 [Rx] Follow up Appointment(s)/Referral(s): Elen Vaz DO [Doctor of Osteopathic Medicine] - 10/09/22 10:45 am Discharge Disposition: HOME SELF-CARE
== END 2022-08-29 19:10 | disposition home or self-care (01) | DRG 807 ==
LOC: FBPOP 18:00 → 4FBP 18:12
PROVIDERS: ADMIT Obstetrics & Gynecology; ATTEND Obstetrics & Gynecology
PROC: 10E0XZZ Delivery of Products of Conception, External Approach (ICD-10-PCS; principal; 2022-08-29)
PROC: 0HQ9XZZ Repair Perineum Skin, External Approach (ICD-10-PCS; 2022-08-29)
DX: O42.92 Full-term premature rupture of membranes, unspecified as to length of time between rupture and onset of labor (principal); Z37.0 Single live birth; O70.0 First degree perineal laceration during delivery; O69.81X0 Labor and delivery complicated by cord around neck, without compression, not applicable or unspecified; Z3A.39 39 weeks gestation of pregnancy; Z85.3 Personal history of malignant neoplasm of breast; Z87.891 Personal history of nicotine dependence; Z90.13 Acquired absence of bilateral breasts and nipples; Z98.84 Bariatric surgery status
CPT/HCPCS: 85025; 86850; 86900; 86901

== ENCOUNTER 2023-03-17 08:46 | Emergency (ER) | payer BC ==
[2023-03-17] MEDS ORDERED: SODIUM CHLORIDE 0.9% 1,000 ML IV STA (09:01)
[2023-03-17] MEDS ORDERED: METOCLOPRAMIDE 5 MG/ML 2 ML VIAL IVP STA (09:01)
[2023-03-17] MEDS ORDERED: KETOROLAC 15 MG/ML 1 ML VIAL IVP STA (09:01)
[2023-03-17] MEDS ORDERED: FAMOTIDINE 20 MG/2 ML VIAL IV STA (09:02)
--- NOTE | 2023-03-17 09:04 | ED ---
General Adult HPI - General Chief complaint: Abdominal Pain Stated complaint: abd pain Time Seen by Provider: 03/17/23 08:56 Source: patient, RN notes reviewed Mode of arrival: ambulatory Limitations: no limitations - History of Present Illness Initial comments: Patient is a pleasant 38-year-old female present to the emergency department with abdominal discomfort. Onset of symptoms was around 3:00 yesterday. Patient has had some nausea without vomiting. Patient has felt a little bit constipated. Discomfort started diffuse however now is more right upper abdomen. Discomfort does increase a little bit with deep breaths. No history of similar symptoms previously. Patient does have history of gastric surgery however still has her gallbladder. Patient has had no appetite since onset of symptoms. Patient has not eaten much. No fever. - Related Data Home Medications Medication Instructions Recorded Confirmed Pedi Multivit No.25/Folic Acid 300 mcg PO DAILY 12/05/19 08/28/22 [Flintstones Multivit Chew Tab] Previous Rx's Medication Instructions Recorded Ibuprofen [Motrin] 600 mg PO Q6HR PRN #30 tab 08/29/22 Allergies Allergy/AdvReac Type Severity Reaction Status Date / Time No Known Allergies Allergy Verified 03/17/23 08:52 Review of Systems ROS Statement: Those systems with pertinent positive or pertinent negative responses have been documented in the HPI. ROS Other: All systems not noted in ROS Statement are negative. Constitutional: Denies: fever Eyes: Denies: eye pain ENT: Denies: ear pain Respiratory: Denies: cough, dyspnea Cardiovascular: Denies: chest pain Endocrine: Denies: fatigue Gastrointestinal: Reports: as per HPI, abdominal pain, nausea, constipation. Denies: vomiting, diarrhea Genitourinary: Denies: dysuria Musculoskeletal: Denies: back pain Skin: Denies: rash Neurological: Denies: weakness Past Medical History Past Medical History: Cancer Additional Past Medical History / Comment(s): 2008 breast cancer, double mastectomy, polycystic ovarian disease History of Any Multi-Drug Resistant Organisms: None Reported Additional Past Surgical History / Comment(s): double masectomy, gastric sleeve Past Anesthesia/Blood Transfusion Reactions: No Reported Reaction Past Psychological History: No Psychological Hx Reported Smoking Status: Former smoker Past Alcohol Use History: None Reported Past Drug Use History: None Reported - Past Family History Mother History Unknown: Yes Additional Family Medical History / Comment(s): skin cancer Father Additional Family Medical History / Comment(s): polycystic kidney disease General Exam Limitations: no limitations General appearance: alert, in no apparent distress Head exam: Present: normocephalic Neck exam: Present: normal inspection Respiratory exam: Present: normal lung sounds bilaterally Cardiovascular Exam: Present: regular rate, normal rhythm Expanded Peripheral pulses: 2+: Dorsalis Pedis (R), Dorsalis Pedis (L) GI/Abdominal exam: Present: soft, tenderness (Moderate tenderness right upper abdomen), normal bowel sounds. Absent: distended, rebound, rigid, pulsatile mass Extremities exam: Present: normal inspection Neurological exam: Present: alert Psychiatric exam: Present: normal affect, normal mood Skin exam: Present: normal color Course Vital Signs 03/17/23 03/17/23 08:48 10:12 Temperature 98.0 F Pulse Rate 78 79 Respiratory 18 18 Rate Blood Pressure 132/88 116/72 O2 Sat by Pulse 98 95 Oximetry Medical Decision Making - Medical Decision Making Was pt. sent in by a medical professional or institution (, PA, CURING BIN OPERATOR, urgent care, hospital, or assisted...) When possible be specific @ -No Did you speak to anyone other than the patient for history (EMS, parent, family, police, friend...)? What history was obtained from this source @ -Family is present and helps provide history including history of gastric surgery Did you review nursing and triage notes (agree or disagree)? Why? @ -I reviewed and agree with nursing and triage notes Were old charts reviewed (outside hosp., previous admission, EMS record, old EKG, old radiological studies, urgent care reports/EKG's, assisted records)? Report findings @ -No old charts were reviewed Differential Diagnosis (chest pain, altered mental status, abdominal pain women, abdominal pain men, vaginal bleeding, weakness, fever, dyspnea, syncope, headache, dizziness, GI bleed, back pain, seizure, CVA, palpatations, mental health, musculoskeletal)? @ -Differential Abdominal Pain Women: Appendicitis, Cholecystitis, diverticulosis, ischemic bowel, pancreatitis, hepatitis, UTI, gastroenteritis, AAA, incarcerated hernia, bowel obstruction, constipation, inflammatory bowel, hepatitis, peptic ulcer disease, splenic infarction, perforated viscus, vulvitis, ovarian torsion, PID, kidney stone, placenta abruption, this is not meant to be an all-inclusive list e EKG interpreted by me (3pts min.). @ -As above X-rays interpreted by me (1pt min.). @ -Abdominal x-ray shows nonspecific abdomen e CT interpreted by me (1pt min.). @ -Air-fluid level ascending colon. Some ascites. U/S interpreted by me (1pt. min.). @ -No obvious gallstones e What testing was considered but not performed or refused? (CT, X-rays, U/S, labs)? Why? @ -None What meds were considered but not given or refused? Why? @ -None Did you discuss the management of the patient with other professionals (professionals i.e. Dr., PA, CURING BIN OPERATOR, lab, RT, psych nurse, social security specialist, javascript application developer, teacher, community arts officer, case consultant)? Give summary @ -Case discussed with on-call surgeon Dr. Zhao who did review images and is comfortable with discharge with patient. He does recommend primary care physician and gastroenterology follow-up Was smoking cessation discussed for >3mins.? @ -No Was critical care preformed (if so, how long)? @ -No Were there social determinants of health that impacted care today? How? (Homelessness, low income, unemployed, alcoholism, drug addiction, transportation, low edu. Level, literacy, decrease access to med. care, senior living, rehab)? @ -No Was there de-escalation of care discussed even if they declined (Discuss DNR or withdrawal of care, Hospice)? DNR status @ -No What co-morbidities impacted this encounter? (DM, HTN, Smoking, COPD, CAD, Cancer, CVA, ARF, Chemo, Hep., AIDS, mental health diagnosis, sleep apnea, morbid obesity)? @ -None Was patient admitted / discharged? Hospital course, mention meds given and route, prescriptions, significant lab abnormalities, going to OR and other pertinent info. @ -Patient reevaluated. Patient and family updated on results and need for follow-up. Patient states she feels much better, discomfort improved to 3/10 and is comfortable with discharge home. Patient will be provided gastroenterology follow-up number. e Undiagnosed new problem with uncertain prognosis? @ -No Drug Therapy requiring intensive monitoring for toxicity (Heparin, Nitro, Insulin, Cardizem)? @ -No Were any procedures done? @ -No Diagnosis/symptom? @ -Abdominal pain t Acute, or Chronic, or Acute on Chronic? @ -Acute Uncomplicated (without systemic symptoms) or Complicated (systemic symptoms)? @ -Default Side effects of treatment? @ -No Exacerbation, Progression, or Severe Exacerbation? @ -No Poses a threat to life or bodily function? How? (Chest pain, [place], [place], pneumonia, PE, COPD, DKA, ARF, appy, cholecystitis, CVA, Diverticulitis, Homicidal, Suicidal, threat to staff... and all critical care pts) @ -No - Lab Data Result diagrams: 03/17/23 09:08 03/17/23 09:08 Lab Results 03/17/23 03/17/23 03/17/23 Range/Units 09:08 09:08 09:08 WBC 10.1 (3.8-10.6) k/uL RBC 4.79 (3.80-5.40) m/uL Hgb 10.7 L (11.4-16.0) gm/dL Hct 35.7 (34.0-46.0) % MCV 74.5 L (80.0-100.0) fL MCH 22.3 L (25.0-35.0) pg MCHC 29.9 L (31.0-37.0) g/dL RDW 27.1 H (11.5-15.5) % Plt Count 242 (150-450) k/uL MPV 7.6 Neutrophils % 75 % Lymphocytes % 17 % Monocytes % 5 % Eosinophils % 1 % Basophils % 0 % Neutrophils # 7.6 (1.3-7.7) k/uL Lymphocytes # 1.8 (1.0-4.8) k/uL Monocytes # 0.5 (0-1.0) k/uL Eosinophils # 0.1 (0-0.7) k/uL Basophils # 0.0 (0-0.2) k/uL Manual Slide Review Performed Dimorphic RBCs Present Hypochromasia Marked Poikilocytosis Slight Anisocytosis Marked Microcytosis Marked PT 10.5 (10.0-12.5) sec INR 0.9 (<1.2) APTT 23.9 (22.0-30.0) sec Sodium (137-145) mmol/L Potassium (3.5-5.1) mmol/L Chloride (98-107) mmol/L Carbon Dioxide (22-30) mmol/L Anion Gap mmol/L BUN (7-17) mg/dL Creatinine (0.52-1.04) mg/dL Est GFR (CKD-EPI)AfAm (>60 ml/min/1.73 sqM) Est GFR (CKD-EPI)NonAf (>60 ml/min/1.73 sqM) Glucose (74-99) mg/dL Calcium (8.4-10.2) mg/dL Total Bilirubin (0.2-1.3) mg/dL AST (14-36) U/L ALT (4-34) U/L Alkaline Phosphatase (38-126) U/L Total Protein (6.3-8.2) g/dL Albumin (3.5-5.0) g/dL Amylase (30-110) U/L Lipase (23-300) U/L HCG, Quant mIU/mL Urine Color Yellow Urine Appearance Cloudy H (Clear) Urine pH 5.5 (5.0-8.0) Ur Specific [place] 1.027 (1.001-1.035) Urine Protein Trace H (Negative) Urine Glucose (UA) Negative (Negative) Urine Ketones Negative (Negative) Urine Blood Large H (Negative) Urine Nitrite Negative (Negative) Urine Bilirubin Negative (Negative) Urine Urobilinogen <2.0 (<2.0) mg/dL Ur Leukocyte Esterase Negative (Negative) Urine RBC 9 H (0-5) /hpf Urine WBC 3 (0-5) /hpf Ur Squamous Epith Cells 6 H (0-4) /hpf Urine Mucus Many H (None) /hpf 03/17/23 Range/Units 09:08 WBC (3.8-10.6) k/uL RBC (3.80-5.40) m/uL Hgb (11.4-16.0) gm/dL Hct (34.0-46.0) % MCV (80.0-100.0) fL MCH (25.0-35.0) pg MCHC (31.0-37.0) g/dL RDW (11.5-15.5) % Plt Count (150-450) k/uL MPV Neutrophils % % Lymphocytes % % Monocytes % % Eosinophils % % Basophils % % Neutrophils # (1.3-7.7) k/uL Lymphocytes # (1.0-4.8) k/uL Monocytes # (0-1.0) k/uL Eosinophils # (0-0.7) k/uL Basophils # (0-0.2) k/uL Manual Slide Review Dimorphic RBCs Hypochromasia Poikilocytosis Anisocytosis Microcytosis PT (10.0-12.5) sec INR (<1.2) APTT (22.0-30.0) sec Sodium 141 (137-145) mmol/L Potassium 3.9 (3.5-5.1) mmol/L Chloride 112 H (98-107) mmol/L Carbon Dioxide 20 L (22-30) mmol/L Anion Gap 9 mmol/L BUN 16 (7-17) mg/dL Creatinine 0.82 (0.52-1.04) mg/dL Est GFR (CKD-EPI)AfAm >90 (>60 ml/min/1.73 sqM) Est GFR (CKD-EPI)NonAf >90 (>60 ml/min/1.73 sqM) Glucose 108 H (74-99) mg/dL Calcium 9.4 (8.4-10.2) mg/dL Total Bilirubin 0.6 (0.2-1.3) mg/dL AST 20 (14-36) U/L ALT 9 (4-34) U/L Alkaline Phosphatase 67 (38-126) U/L Total Protein 7.7 (6.3-8.2) g/dL Albumin 4.7 (3.5-5.0) g/dL Amylase 85 (30-110) U/L Lipase 91 (23-300) U/L HCG, Quant <2.4 mIU/mL Urine Color Urine Appearance (Clear) Urine pH (5.0-8.0) Ur Specific [place] (1.001-1.035) Urine Protein (Negative) Urine Glucose (UA) (Negative) Urine Ketones (Negative) Urine Blood (Negative) Urine Nitrite (Negative) Urine Bilirubin (Negative) Urine Urobilinogen (<2.0) mg/dL Ur Leukocyte Esterase (Negative) Urine RBC (0-5) /hpf Urine WBC (0-5) /hpf Ur Squamous Epith Cells (0-4) /hpf Urine Mucus (None) /hpf Disposition Clinical Impression: Abdominal pain Disposition: HOME SELF-CARE Condition: Stable Instructions (If sedation given, give patient instructions): Abdominal Pain (ED) Additional Instructions: Please do follow-up with primary care physician this week. Please also follow- up with gastroenterology in the next day or 2, number provided. Please also follow-up with your surgeon. Return for increased pain, fever, vomiting, wo rsening or changing symptoms or other concerns. Is patient prescribed a controlled substance at d/c from ED?: No Referrals: Irene Deal PAC [REFERRING] - 1-2 days Laurita Franklin MD [STAFF PHYSICIAN] - 1-2 days Time of Disposition: 11:52
[2023-03-17 09:32] LABS: Anisocytosis Marked; Basophils % (A) 0 %; Eosinophils # (A) 0.1 k/uL (0-0.7); Eosinophils % (A) 1 %; HCT 35.7 % (34.0-46.0); HGB 10.7 gm/dL (11.4-16.0); Hypochromasia Marked; Lymphocytes # (A) 1.8 k/uL (1.0-4.8); Lymphocytes % (A) 17 %; MCH 22.3 pg (25.0-35.0); MCHC 29.9 g/dL (31.0-37.0); MCV 74.5 fL (80.0-100.0); Mean Platelet Volume 7.6; Microcytosis Marked; Monocytes # (A) 0.5 k/uL (0-1.0); Monocytes % (A) 5 %; Neutrophils # (A) 7.6 k/uL (1.3-7.7); Neutrophils % (A) 75 %; Platelet Count 242 k/uL (150-450); Poikilocytosis Slight; RBC 4.79 m/uL (3.80-5.40); WBC 10.1 k/uL (3.8-10.6)
[2023-03-17 09:42] LABS: INR 0.9 (<1.2); Partial Thromboplastin Time 23.9 sec (22.0-30.0); Prothrombin Time 10.5 sec (10.0-12.5)
[2023-03-17 09:43] LABS: ALT 9 U/L (4-34); AST 20 U/L (14-36); African American GFR (CKD) >90 (>60 ml/min/1.73 sqM); Albumin 4.7 g/dL (3.5-5.0); Alkaline Phosphatase 67 U/L (38-126); Amylase 85 U/L (30-110); Anion Gap 9 mmol/L; Blood Urea Nitrogen 16 mg/dL (7-17); Calcium 9.4 mg/dL (8.4-10.2); Carbon Dioxide 20 mmol/L (22-30); Chloride 112 mmol/L (98-107); Glucose 108 mg/dL (74-99); Lipase 91 U/L (23-300); Non-African American GFR(CKD) >90 (>60 ml/min/1.73 sqM); Potassium 3.9 mmol/L (3.5-5.1); Sodium 141 mmol/L (137-145); Total Bilirubin 0.6 mg/dL (0.2-1.3); Total Protein 7.7 g/dL (6.3-8.2)
[2023-03-17 09:44] LABS: RDW 27.1 % (11.5-15.5)
--- NOTE | 2023-03-17 09:49 | US ---
EXAMINATION TYPE: US gallbladder DATE OF EXAM: 03/17/2023 COMPARISON: NONE CLINICAL INDICATION: Female, 38 years old with history of pain; Pt states ABD pain x 1 day TECHNIQUE: Multiple sonographic images of the right upper quadrant are obtained. FINDINGS: EXAM MEASUREMENTS: Liver Length: 17.6 cm Gallbladder Wall: 0.2 cm CBD: 0.3 cm Right Kidney: 9.5 x 3.6 x 4.5 cm LOT PORTER NOTES: Pancreas: Obscured by bowel gas Liver: Visualized portions appeared wnl Gallbladder: wnl Evidence for sonographic Puga's sign: No CBD: wnl Right Kidney: wnl, lower pole gassed out Small amount of ascites at inferior margin of right lobe of liver ?etiology IMPRESSION: 1. Hepatomegaly. 2. Minimal ascites is evident.
[2023-03-17 09:52] LABS: Appearance,Urine Cloudy (Clear); Bilirubin,Urine Negative (Negative); Blood,Urine Large (Negative); Color,Urine Yellow; Glucose,Urine (UA) Negative (Negative); Ketones,Urine Negative (Negative); Leukocyte Esterase,Urine Negative (Negative); Mucus,Urine Many /hpf; Nitrite,Urine Negative (Negative); PH, Urine 5.5 (5.0-8.0); Protein,Urine Trace (Negative); RBC,Urine 9 /hpf (0-5); Specific Gravity,Urine 1.027 (1.001-1.035); Squamous Epithelial Cell,Urine 6 /hpf (0-4); Urobilinogen,Urine <2.0 mg/dL (<2.0); WBC,Urine 3 /hpf (0-5)
[2023-03-17 09:56] VITALS: RESP 18; TEMP 98
[2023-03-17 09:59] LABS: HCG,Quantitative Serum <2.4 mIU/mL
[2023-03-17] MEDS ORDERED: MORPHINE SULFATE 4 MG/ML SYRINGE IVP STA (10:07)
[2023-03-17] MEDS ORDERED: IOPAMIDOL CONTRAST (ORAL USE) VIAL PO PRN (10:20)
[2023-03-17 10:26] LABS: Mixed Population RBC Present
--- NOTE | 2023-03-17 10:32 | XR ---
EXAMINATION TYPE: XR KUB DATE OF EXAM: 03/17/2023 COMPARISON: None INDICATION: Abdomen pain and constipation TECHNIQUE: Single view abdomen upright view FINDINGS: Normal colonic bowel gas is present. No suspicious differential air-fluid present. Couple of nonspeci fic small bowel loops containing air-fluid levels are in the left lower quadrant. No dilated small tyrese wel loops are evident. No significant fecal retention is evident. Psoas margins are normal. No organomegaly is present. IMPRESSION: 1. Nonspecific abdomen. Follow-up can be performed as clinically indicated
--- NOTE | 2023-03-17 11:20 | CT ---
EXAMINATION TYPE: CT abdomen pelvis w con DATE OF EXAM: 03/17/2023 COMPARISON: None INDICATION: RUQ abd pain. hx of bariatric sx 5 years ago. DLP: 635.1 mGycm, Automated exposure control for dose reduction was used. CONTRAST: 100ml mL of Isovue 300. Study performed with Oral Contrast TECHNIQUE: Axial images were obtained from above the diaphragm to the pubic rami in the axial plane a t 5 mm thick sections. Reconstructed images are reviewed on the computer in the coronal plane. FINDINGS: Limited CT sections are obtained the lung bases. The lung bases are clear. Bilateral breast prosthe ses are present. Small hiatal hernia is present. CT ABDOMEN: Small amount of ascites adjacent to the tip of the liver and within the paracolic gutters . Free fluid is within the pelvis. Liver: Normal Spleen: Normal Pancreas: Normal Adrenal glands: The adrenal glands are normal. Gallbladder: Normal Kidneys: No masses are evident. No hydronephrosis is present. No cysts are present. No renal stone s are evident. Post contrast delayed kidneys appears normal Aorta: Normal Inferior vena cava: Normal. CT PELVIS: Loops of bowel within the abdomen and pelvis are normal. The ascending colon appears somewhat pro minent with an air-fluid level. Consider gastroenteritis. No wall thickening or adjacent laboratory c hanges evident. No extravasation of contrast following oral administration of contrast. Appendix: Not identified. No dilated tubular structure or inflammatory changes evident. Urinary bladder: Decompressed and limits evaluation. Genitourinary structures: Uterus appears normal. Adnexa are normal. Osseous structures: No suspicious lytic or sclerotic lesions. IMPRESSION: 1. Air-fluid level within a prominent ascending loop of colon correlate for gastroenteritis. No wall thickening or adjacent inflammatory changes. 2. No extravasation of oral contrast evident. 3. Ascites
[2023-03-17] MEDS ORDERED: ACET/COD 300 MG/30 MG STARTER PACK 6 TAB BTL PO STA (12:15)
[2023-03-17 12:58] VITALS: BP 124/77; PULSE 78
== END 2023-03-17 12:42 | disposition home or self-care (01) ==
LOC: EC 08:46
DX: R10.11 Right upper quadrant pain (principal); Z87.891 Personal history of nicotine dependence
CPT/HCPCS: 36415; 80053; 82150; 83690; 85025; 85610; 85730; 81001; 84702; 74018; 76705; 74177; 99285; 96374; 96375 ×3; 96361 ×3; J2270; J2765; J3490; J1885; Q9967

== ENCOUNTER → 2023-03-20 | Outpatient (CLI) | payer BC ==
--- NOTE | 2023-03-20 12:09 | NM ---
EXAMINATION TYPE: NM hepatobiliary w EF DATE OF EXAM: 03/20/2023 COMPARISON: CT abdomen pelvis 03/17/2023 CLINICAL INDICATION: Female, 38 years old with history of R10.13 EPIGASTRIC PAIN; TECHNIQUE: After the intravenous administration of 4.98 mCi Tc 99m Mebrofenin hepatobiliary scintigra phy is performed. Immediate images post injection. FINDINGS: There is satisfactory initial accumulation of tracer by the liver. The gallbladder is visualized wit hin 6 minutes. The small bowel activity is noted within 54 minutes. At one hour 8 ounces of oral en sure plus is given to mimic CCK and gallbladder ejection fraction is calculated at 64 %, in the hay l range. Therefore there is no scintigraphic evidence of cystic or common bile duct obstruction to s uggest acute cholecystitis or gallbladder dyskinesia. IMPRESSION: Exam is within normal limits.
--- NOTE | 2023-03-21 17:09 | P.PN ---
Progress Note - Text Progress Note Date: 03/21/23 38-year-old female went to the ER this past weekend with abdominal pain. Prior to discharge I was contacted by ER staff describing new onset ascites and abdominal pain. She was doing well enough to go home per the ER and outpatient follow-up was arranged with her primary care physician and also GI given the new onset ascites. Today I was reviewing a few films with our radiologist when he described the case recently where the patient came to the ER with ascites and he thought there likely was some hemorrhagic component to that fluid. After discussing further it sounded like this was the patient I had been contacted about last weekend. We reviewed the films together. There does not fact appear to be hemorrhagic component to the ascites that is present. There also appears to be a complex cyst in the right adnexa. Because of this I called the patient by phone. I introduced myself and notified her that I was contacted regarding her CAT scan on the weekend. She is doing better today. Her pain however has persisted. No lightheadedness or syncopal episodes. Patient states she has had a large ovarian cyst that was being monitored during her last . She sees Dr. Vaz as an outpatient. Has not seen her for a while. She had a HIDA scan ordered by GI that appeared normal. I discussed the recent CAT scan findings further and suggested she follow-up with gynecology. I asked the patient to go to the ER if she has any worsening pain or lightheadedness. I asked the patient if she was okay with me contacting Dr. Vaz. She requested I do so. I spoke with Dr. Vaz just now explaining the patient's recent hospital visit and radiologic studies. Dr. Vaz states she will try to get her in in the next several days to discuss further options and workup.
== END | disposition home or self-care (01) ==
LOC: RADNMMAIN 08:55
PROVIDERS: ATTEND Internal Medicine Gastroenterology
DX: R10.13 Epigastric pain (principal)
CPT/HCPCS: 78226; A9537